=== PATIENT | female | born 1975 | race African-American/Black ===

== ENCOUNTER 2016-06-28 23:47 | Emergency (ER) | payer MEDICARE, MEDICAID ==
[2016-06-29 00:58] VITALS: BP 125/75
[2016-06-29] MEDS ORDERED: GUAIFENESIN/D-METHORPHAN (200-20 MG) SYRUP 10 ML PO ONE (01:47)
--- NOTE | 2016-06-29 01:50 | ER Document Report ---
ED ENT - General Chief Complaint: Sore Throat Stated Complaint: SORE THROAT Mode of Arrival: Ambulatory Information source: Patient, Friend Notes: Patient is a 41-year-old -[place] female who presents to the ER today for sore throat and cough 2 days. Patient states that the cough is a dry, hacking cough. She admits to chills and body aches. She is not tried anything for her symptoms. She denies nausea, vomiting or diarrhea, painful lymph nodes , headaches, fever. TRAVEL OUTSIDE OF THE [place] IN LAST 30 DAYS: No - Related Data Allergies/Adverse Reactions: No Known Allergies Allergy (Unverified 06/29/16 00:58) Past Medical History - General Information source: Patient, Friend - Social History Smoking Status: Never Smoker Family History: Reviewed & Not Pertinent Patient has suicidal ideation: No Patient has homicidal ideation: No Renal/ Medical History: Denies: Hx Peritoneal Dialysis Review of Systems - Review of Systems Constitutional: See HPI EENT: See HPI Cardiovascular: No symptoms reported Respiratory: See HPI Gastrointestinal: No symptoms reported Genitourinary: No symptoms reported Female Genitourinary: No symptoms reported Musculoskeletal: No symptoms reported Skin: No symptoms reported Hematologic/Lymphatic: No symptoms reported Neurological/Psychological: No symptoms reported Physical Exam - Vital signs Vitals: Temp Pulse Resp BP Pulse Ox 98 F 76 18 125/75 100 06/29/16 00:56 06/29/16 00:56 06/29/16 00:56 06/29/16 00:56 06/29/16 00:56 - Notes Notes: PHYSICAL EXAMINATION: GENERAL: Mildly ill-appearing, but in no acute distress. HEAD: Atraumatic, normocephalic. EYES: Pupils equal round and reactive to light, extraocular movements intact, sclera anicteric, conjunctiva are normal. ENT: ear canals without erythema or foreign body, TMs pearly flowers with good bony landmarks, nares with mucoid discharge, oropharynx clear without exudates. Moist mucous membranes. NECK: Normal range of motion, supple without lymphadenopathy LUNGS: Coughing constantly, otherwise CTAB and equal. No wheezes rales or rhonchi. HEART: Regular rate and rhythm without murmurs EXTREMITIES: Normal range of motion, no pitting edema. No cyanosis. NEUROLOGICAL: Cranial nerves grossly intact. Normal sensory/motor exams. PSYCH: Normal mood, normal affect. SKIN: Warm, Dry, normal turgor, no rashes or lesions noted Course - Re-evaluation Re-evalutation: 06/29/16 02:41 Strep was negative - Vital Signs Vital signs: Temp Pulse Resp BP Pulse Ox 98 F 76 18 125/75 100 06/29/16 00:56 06/29/16 00:56 06/29/16 00:56 06/29/16 00:56 06/29/16 00:56 Discharge - Discharge Clinical Impression: Cough, Sore throat Condition: Stable Disposition: HOME, SELF-CARE Instructions: Sore Throat ([facility]) Additional Instructions: Return immediately for any new or worsening symptoms. Follow up with primary care provider, call tomorrow to make followup appointment. Prescriptions: Hydrocodone Bit/Homatrop Me-Br [Hydrocodone-Homatropine Syrup] 5 ml PO Q4 PRN # 120 ml PRN Reason: Forms: Return to Work
== END 2016-06-29 03:00 | disposition home or self-care (01) ==
LOC: ER 23:47
DX: J02.9 Acute pharyngitis, unspecified (principal); R05 Cough; R68.83 Chills (without fever)
CPT/HCPCS: 99283; 87070; 87880; A9270; J3490

== ENCOUNTER 2016-09-06 18:06 | Emergency (ER) | payer MEDICARE, MEDICAID ==
[2016-09-06 18:13] VITALS: BP 126/80
--- NOTE | 2016-09-06 19:06 | ER Document Report ---
ED Medical Screen (RME) - General Chief Complaint: Abdominal Pain Stated Complaint: DIZZINESS,LEG PAIN Time Seen by Provider: 09/06/16 18:54 Mode of Arrival: Ambulatory Information source: Patient TRAVEL OUTSIDE OF THE [place] IN LAST 30 DAYS: No - HPI Onset: Yesterday Onset/Duration: Gradual Quality of pain: Cramping Associated Symptoms: Dizzy/lightheaded Exacerbated by: Denies Relieved by: Denies Notes: 09/06/16 19:05 Patient is a 41-year-old female who has been having irregular menses for some time. She is followed by her PHYSICIAN INDUSTRIAL doctor. Patient states she has had 2 menstrual cycles this month. Patient states she is used approximately 6 pads since yesterday. Patient feels dizzy. No syncope. No pelvic cramping. Patient is not currently on any female hormones. - Related Data Allergies/Adverse Reactions: No Known Allergies Allergy (Unverified 06/29/16 00:58) Past Medical History - General Information source: Patient, [facility] Records - Social History Frequency of alcohol use: None Drug Abuse: None Renal/ Medical History: Denies: Hx Peritoneal Dialysis Surgical Hx: Negative Review of Systems - Review of Systems Female Genitourinary: Vaginal bleeding -: Yes All other systems reviewed and negative Physical Exam - Vital signs Vitals: Temp Pulse Resp BP Pulse Ox 98 F 106 H 18 126/80 H 98 09/06/16 18:11 09/06/16 18:11 09/06/16 18:11 09/06/16 18:11 09/06/16 18:11 Interpretation: Normal - General General appearance: Appears well, Alert - HEENT Head: Normocephalic, Atraumatic Eyes: Normal Pupils: PERRL - Respiratory Respiratory status: No respiratory distress Chest status: Nontender Breath sounds: Normal Chest palpation: Normal - Cardiovascular Rhythm: Regular Heart sounds: Normal auscultation Murmur: No - Abdominal Inspection: Normal Distension: No distension Bowel sounds: Normal Tenderness: Nontender Organomegaly: No organomegaly - Back Back: Normal, Nontender - Extremities General upper extremity: Normal inspection, Nontender, Normal color, Normal ROM , Normal temperature General lower extremity: Normal inspection, Nontender, Normal color, Normal ROM , Normal temperature, Normal weight bearing. No: Sadie's sign - Neurological Neuro grossly intact: Yes Cognition: Normal Orientation: AAOx4 Pura Coma Scale Eye Opening: Spontaneous [place] Coma Scale Verbal: Oriented Pura Coma Scale Motor: Obeys Commands Pura Coma Scale Total: 15 Speech: Normal Motor strength normal: LUE, RUE, LLE, RLE Sensory: Normal - Psychological Associated symptoms: Normal affect, Normal mood - Skin Skin Temperature: Warm Skin Moisture: Dry Skin Color: Normal Course - Re-evaluation Re-evalutation: 09/06/16 20:01 Hemoglobin is normal. ED workup was otherwise unremarkable. Discussed need for PHYSICIAN INDUSTRIAL/primary care follow-up. Results have been reviewed with patient. - Vital Signs Vital signs: Temp Pulse Resp BP Pulse Ox 98 F 106 H 20 126/80 H 98 09/06/16 18:11 09/06/16 18:11 09/06/16 18:38 09/06/16 18:11 09/06/16 18:11 - Laboratory Result Diagrams: 09/06/16 19:15 09/06/16 19:15 Laboratory results interpreted by me: 09/06/16 09/06/16 19:15 19:15 Potassium 3.5 L Total Protein 8.4 H Urine Blood LARGE H Ur Leukocyte Esterase SMALL H Doctor's Discharge - Discharge Clinical Impression: Dysmenorrhea Condition: Good Disposition: HOME, SELF-CARE Instructions: Dysmenorrhea ([facility]) Additional Instructions: Follow-up with your PHYSICIAN INDUSTRIAL doctor tomorrow. Return to the emergency department if worse or for any other problems. Prescriptions: Tramadol HCl 50 mg PO QID PRN #20 tablet PRN Reason: Mild Pain
[2016-09-06 19:41] LABS: APPEARANCE,URINE SLIGHTLY-CLOUDY; BILIRUBIN,URINE NEGATIVE (NEGATIVE); GLUCOSE, URINE NEGATIVE (NEGATIVE); KETONES,URINE NEGATIVE (NEGATIVE); LEUKOCYTE ESTERASE,URINE SMALL (NEGATIVE); NITRITE,URINE NEGATIVE (NEGATIVE); PROTEIN,URINE NEGATIVE (NEGATIVE); URINE SPECIFIC GRAVITY 1.013; UROBILINOGEN,URINE NEGATIVE mg/dL (<2.0)
[2016-09-06 19:42] LABS: ABSOLUTE EOSINOPHILS # (AUTO) 0.2 10^3/uL (0.0-0.6); ABSOLUTE LYMPHOCYTES (AUTO) 1.9 10^3/uL (0.5-4.7); ABSOLUTE MONOCYTES (AUTO) 0.4 10^3/uL (0.1-1.4); ABSOLUTE NEUT (AUTO) 2.8 10^3/uL (1.7-8.2); BASOPHILS % (AUTO) 0.6 % (0-2); EOSINOPHILS % (AUTO) 4.5 % (0-6); HEMATOCRIT 40.6 % (36.0-47.0); HEMOGLOBIN 13.2 g/dL (12.0-15.5); LYMPHOCYTES % (AUTO) 34.9 % (13-45); MEAN CORPUSCULAR HEMOGLOBIN 29.6 pg (27.0-33.4); MEAN CORPUSCULAR HGB CONC 32.4 g/dL (32.0-36.0); MEAN CORPUSCULAR VOLUME 91 fl (80-97); MONOCYTES % (AUTO) 8.2 % (3-13); RED BLOOD COUNT 4.44 10^6/uL (3.72-5.28); RED CELL DISTRIBUTION WIDTH 13.3 % (11.5-14.0); SEGMENTED NEUTROPHILS % (AUTO) 51.8 % (42-78); WHITE BLOOD COUNT 5.4 10^3/uL (4.0-10.5)
[2016-09-06 19:54] LABS: ALANINE AMINOTRANSFERASE 25 U/L (9-52); ALBUMIN 4.5 g/dL (3.5-5.0); ALKALINE PHOSPHATASE 69 U/L (38-126); ANION GAP 11 (5-19); ASPARTATE AMINO TRANSFERASE 16 U/L (14-36); BILIRUBIN,DIRECT 0.3 mg/dL (0.0-0.4); BILIRUBIN,TOTAL 0.5 mg/dL (0.2-1.3); BLOOD UREA NITROGEN 12 mg/dL (7-20); CALCIUM 9.5 mg/dL (8.4-10.2); CARBON DIOXIDE 27 mmol/L (22-30); CHLORIDE 104 mmol/L (98-107); GLUCOSE 99 mg/dL (75-110); POTASSIUM 3.5 mmol/L (3.6-5.0); SODIUM 141.8 mmol/L (137-145); TOTAL PROTEIN 8.4 g/dL (6.3-8.2)
== END 2016-09-06 20:19 | disposition home or self-care (01) ==
LOC: ER 18:06
DX: N94.6 Dysmenorrhea, unspecified (principal); R10.9 Unspecified abdominal pain; R42 Dizziness and giddiness; M79.606 Pain in leg, unspecified
CPT/HCPCS: 36415; 80053; 81001; 85025; 99284

== ENCOUNTER 2019-01-14 13:08 | Emergency (ER) | payer MEDICARE, MEDICAID ==
[2019-01-14 13:12] VITALS: BP 110/73
--- NOTE | 2019-01-14 13:25 | ER Document Report ---
ED Medical Screen (RME) - General Chief Complaint: Vaginal Discharge Stated Complaint: VAGINAL DISCOMFORT Time Seen by Provider: 01/14/19 13:16 Primary Care Provider: NIGEL LUCERO MD [Primary Care Provider] - Follow up as needed Notes: Patient is a 43-year-old female who presents emergency department with a chief complaint of irregular vaginal bleeding. Patient states that for the past few months her bleeding has been irregular. She sometimes has to wear 2 pads at a time to help with her bleeding. Patient has seen her primary care provider, but has not seen COST ESTIMATING CLERK in regards to this issue. Patient also states that she has some discomfort in her lower abdomen. Denies any dysuria. Exam: Tender mid lower abdomen. I have greeted and performed a rapid initial assessment of this patient. A comprehensive ED assessment and evaluation of the patient, analysis of test results and completion of medical decision making process will be conducted by an additional ED providers. TRAVEL OUTSIDE OF THE [place] IN LAST 30 DAYS: No - Related Data Allergies/Adverse Reactions: No Known Allergies Allergy (Unverified 06/29/16 00:58) Past Medical History - Social History Frequency of alcohol use: None Drug Abuse: None Renal/ Medical History: Denies: Hx Peritoneal Dialysis Physical Exam - Vital signs Vitals: Temp Pulse BP Pulse Ox 98.0 F 65 110/73 99 01/14/19 13:12 01/14/19 13:12 01/14/19 13:12 01/14/19 13:12 Course - Vital Signs Vital signs: Temp Pulse Resp BP Pulse Ox 98.0 F 65 110/73 99 01/14/19 13:12 01/14/19 13:12 01/14/19 13:12 01/14/19 13:12 Doctor's Discharge - Discharge Referrals: NIGEL LUCERO MD [Primary Care Provider] - Follow up as needed
[2019-01-14] MEDS ORDERED: ONDANSETRON 4 MG TAB.RAPDIS PO ONE (13:26)
[2019-01-14 14:01] LABS: ABSOLUTE EOSINOPHILS # (AUTO) 0.3 10^3/uL (0.0-0.6); ABSOLUTE MONOCYTES (AUTO) 0.3 10^3/uL (0.1-1.4); ABSOLUTE NEUT (AUTO) 1.8 10^3/uL (1.7-8.2); BASOPHILS % (AUTO) 0.5 % (0-2); EOSINOPHILS % (AUTO) 6.2 % (0-6); HEMATOCRIT 36.5 % (36.0-47.0); HEMOGLOBIN 12.5 g/dL (12.0-15.5); LYMPHOCYTES % (AUTO) 45.5 % (13-45); MEAN CORPUSCULAR HEMOGLOBIN 31.3 pg (27.0-33.4); MEAN CORPUSCULAR HGB CONC 34.2 g/dL (32.0-36.0); MEAN CORPUSCULAR VOLUME 92 fl (80-97); PLATELET COUNT 250 10^3/uL (150-450); RED BLOOD COUNT 3.99 10^6/uL (3.72-5.28); RED CELL DISTRIBUTION WIDTH 12.7 % (11.5-14.0); SEGMENTED NEUTROPHILS % (AUTO) 40.8 % (42-78); TOTAL CELLS COUNTED % (AUTO) 100 %; WHITE BLOOD COUNT 4.5 10^3/uL (4.0-10.5)
[2019-01-14 14:25] LABS: APPEARANCE,URINE CLEAR; BILIRUBIN,URINE NEGATIVE (NEGATIVE); COLOR,URINE YELLOW; GLUCOSE, URINE NEGATIVE (NEGATIVE); KETONES,URINE NEGATIVE (NEGATIVE); PROTEIN,URINE 30 mg/dL (NEGATIVE); URIC ACID CRYSTALS,URINE TOO NUMEROUS TO CNT /HPF; URINE SPECIFIC GRAVITY 1.012; UROBILINOGEN,URINE NEGATIVE mg/dL (<2.0)
[2019-01-14 14:29] LABS: ALBUMIN 3.9 g/dL (3.5-5.0); ALKALINE PHOSPHATASE 53 U/L (38-126); ANION GAP 8 (5-19); ASPARTATE AMINO TRANSFERASE 16 U/L (14-36); BILIRUBIN,DIRECT 0.1 mg/dL (0.0-0.4); BILIRUBIN,TOTAL 0.4 mg/dL (0.2-1.3); BLOOD UREA NITROGEN 9 mg/dL (7-20); CALCIUM 9.3 mg/dL (8.4-10.2); CARBON DIOXIDE 25 mmol/L (22-30); CHLORIDE 108 mmol/L (98-107); GLUCOSE 84 mg/dL (75-110); TOTAL PROTEIN 7.3 g/dL (6.3-8.2)
[2019-01-14] MEDS ORDERED: IBUPROFEN 800 MG TABLET PO ONE (15:53)
[2019-01-14] MEDS ORDERED: CEPHALEXIN 500 MG CAPSULE PO ONE (15:53)
--- NOTE | 2019-01-14 15:54 | ER Document Report ---
ED GI/ - General Chief Complaint: Vaginal Discharge Stated Complaint: VAGINAL DISCOMFORT Time Seen by Provider: 01/14/19 13:16 Primary Care Provider: [facility] [Provider Group] - Follow up in 3-5 days NIGEL LUCERO MD [Primary Care Provider] - Follow up as needed Mode of Arrival: Ambulatory Information source: Patient Notes: Patient presents complaining of vaginal bleeding for the past 3 days. Patient reports last menstrual period was 2 months ago. Patient does complain of lower abdominal cramping. Patient reports nausea. Patient denies any urinary symptoms. TRAVEL OUTSIDE OF THE [place] IN LAST 30 DAYS: No - HPI Patient complains to provider of: Pelvic pain, Vaginal bleeding Onset: Other - 3 days Timing/Duration: Gradual Quality of pain: Cramping Pain Level: 3 Location: Pelvis Vaginal bleeding (Compared to normal period): Similar Associated symptoms: Nausea. denies: Dysuria, Fever, Loss of appetite, Urinary hesitancy, Urinary frequency, Urinary retention, Vomiting Exacerbated by: Denies Relieved by: Denies Similar symptoms previously: No Recently seen / treated by doctor: No - Related Data Allergies/Adverse Reactions: No Known Allergies Allergy (Unverified 06/29/16 00:58) Past Medical History - General Information source: Patient - Social History Smoking Status: Never Smoker Frequency of alcohol use: None Drug Abuse: None Occupation: Office Family History: Reviewed & Not Pertinent Patient has suicidal ideation: No Patient has homicidal ideation: No - Medical History Medical History: Negative Renal/ Medical History: Denies: Hx Peritoneal Dialysis Surgical Hx: Negative Review of Systems - Review of Systems Constitutional: No symptoms reported. denies: Fever, Recent illness EENT: No symptoms reported Cardiovascular: No symptoms reported. denies: Chest pain Respiratory: No symptoms reported Gastrointestinal: Abdominal pain, Nausea. denies: Vomiting Genitourinary: No symptoms reported Female Genitourinary: Vaginal bleeding. denies: Vaginal discharge Musculoskeletal: No symptoms reported Skin: No symptoms reported Hematologic/Lymphatic: No symptoms reported Neurological/Psychological: No symptoms reported Physical Exam - Vital signs Vitals: Temp Pulse BP Pulse Ox 98.0 F 65 110/73 99 01/14/19 13:12 01/14/19 13:12 01/14/19 13:12 01/14/19 13:12 - General General appearance: Appears well, Alert In distress: None - HEENT Head: Normocephalic, Atraumatic Eyes: Normal Conjunctiva: Normal Nasal: Normal Mouth/Lips: Normal Mucous membranes: Normal Neck: Normal, Supple. No: Lymphadenopathy - Respiratory Respiratory status: No respiratory distress Chest status: Nontender Breath sounds: Normal Chest palpation: Normal - Cardiovascular Rhythm: Regular Heart sounds: S1 appreciated, S2 appreciated Murmur: No - Abdominal Inspection: Normal Distension: No distension Bowel sounds: Normal Tenderness: Tender - suprapubic Organomegaly: No organomegaly - Back Back: Normal, Nontender. No: CVA tenderness - Extremities General upper extremity: Normal inspection, Normal strength General lower extremity: Normal inspection, Normal strength - Neurological Neuro grossly intact: Yes Cognition: Normal Pura Coma Scale Eye Opening: Spontaneous Pura Coma Scale Verbal: Oriented Pura Coma Scale Motor: Obeys Commands Pura Coma Scale Total: 15 - Psychological Associated symptoms: Normal affect, Normal mood - Skin Skin Temperature: Warm Skin Moisture: Dry Skin Color: Normal Course - Re-evaluation Re-evalutation: 01/14/19 16:14 Offered patient testing for STDs, patient declines any concern about STI. Patient defers any pelvic examination at this time. Ultrasound does show heterogenous uterine findings that could be due to possible uterine fibroids. Discussed this finding with patient. Patient advised that she should follow-up with OPERATIONS TECH doctor for further evaluation and to rule out any other pathology that may be causing irregular vaginal bleeding. Patient with stable H&H and vital signs. Will culture urine at this time and treat for UTI. - Vital Signs Vital signs: Temp Pulse Resp BP Pulse Ox 98.0 F 65 110/73 99 01/14/19 13:12 01/14/19 13:12 01/14/19 13:12 01/14/19 13:12 - Laboratory Result Diagrams: 01/14/19 13:41 01/14/19 13:41 Laboratory results interpreted by me: 01/14/19 01/14/19 01/14/19 13:23 13:41 13:41 Lymph % (Auto) 45.5 H Eos % (Auto) 6.2 H Seg Neutrophils % 40.8 L Chloride 108 H Urine Protein 30 H Urine Blood LARGE H 01/14/19 16:15 Labs- Entire Visit 01/14/19 01/14/19 01/14/19 13:23 13:23 13:41 WBC 4.5 RBC 3.99 Hgb 12.5 Hct 36.5 MCV 92 MCH 31.3 MCHC 34.2 RDW 12.7 Plt Count 250 Lymph % (Auto) 45.5 H [place] % (Auto) 7.0 Eos % (Auto) 6.2 H Baso % (Auto) 0.5 Absolute Neuts (auto) 1.8 Absolute Lymphs (auto) 2.0 Absolute Monos (auto) 0.3 Absolute Eos (auto) 0.3 Absolute Basos (auto) 0.0 Seg Neutrophils % 40.8 L Sodium Potassium Chloride Carbon Dioxide Anion Gap BUN Creatinine Est GFR ( Amer) Est GFR (MDRD) Non-Af Glucose Calcium Total Bilirubin Direct Bilirubin Neonat Total Bilirubin Neonat Direct Bilirubin Neonat Indirect Bili AST ALT Alkaline Phosphatase Total Protein Albumin Serum HCG, Qual NEGATIVE Urine Color YELLOW Urine Appearance CLEAR Urine pH 7.0 Ur Specific [place] 1.012 Urine Protein 30 H Urine Glucose (UA) NEGATIVE Urine Ketones NEGATIVE Urine Blood LARGE H Urine Nitrite (Reflex) NEGATIVE Urine Bilirubin NEGATIVE Urine Urobilinogen NEGATIVE Leukocyte Esterase Rfl NEGATIVE Urine RBC (Auto) >182 Urine WBC (Reflex) 100 Squamous Epi Cells Auto 11 Uric Acid Cryst (Auto) TOO NUMEROUS TO CNT Urine Mucus (Auto) FEW Urine Ascorbic Acid NEGATIVE 01/14/19 13:41 WBC RBC Hgb Hct MCV MCH MCHC RDW Plt Count Lymph % (Auto) [place] % (Auto) Eos % (Auto) Baso % (Auto) Absolute Neuts (auto) Absolute Lymphs (auto) Absolute Monos (auto) Absolute Eos (auto) Absolute Basos (auto) Seg Neutrophils % Sodium 141.3 Potassium 4.0 Chloride 108 H Carbon Dioxide 25 Anion Gap 8 BUN 9 Creatinine 0.70 Est GFR ( Amer) > 60 Est GFR (MDRD) Non-Af > 60 Glucose 84 Calcium 9.3 Total Bilirubin 0.4 Direct Bilirubin 0.1 Neonat Total Bilirubin Not Reportable Neonat Direct Bilirubin Not Reportable Neonat Indirect Bili Not Reportable AST 16 ALT 8 Alkaline Phosphatase 53 Total Protein 7.3 Albumin 3.9 Serum HCG, Qual Urine Color Urine Appearance Urine pH Ur Specific [place] Urine Protein Urine Glucose (UA) Urine Ketones Urine Blood Urine Nitrite (Reflex) Urine Bilirubin Urine Urobilinogen Leukocyte Esterase Rfl Urine RBC (Auto) Urine WBC (Reflex) Squamous Epi Cells Auto Uric Acid Cryst (Auto) Urine Mucus (Auto) Urine Ascorbic Acid - Diagnostic Test Radiology reviewed: Reports reviewed Discharge - Discharge Clinical Impression: Vaginal bleeding UTI (urinary tract infection) Qualifiers: Urinary tract infection type: site unspecified Hematuria presence: with hematuria Qualified Code(s): N39.0 - Urinary tract infection, site not specified Condition: Stable Disposition: HOME, SELF-CARE Instructions: Cephalexin ([facility]), Urinary Tract Infection ([facility]), Vaginal Bleeding ([facility]) Additional Instructions: Return immediately for any new or worsening symptoms Followup with your SPREADER care provider, call tomorrow to make a followup appointment Your ultrasound shows findings that could be dated to uterine fibroids. You should follow-up with a automotive maintenance technician for further evaluation of abnormal bleeding. They may need to do a biopsy to rule out cancer as a possible cause of causing irregular vaginal bleeding. Prescriptions: Cephalexin Monohydrate [Keflex 500 mg Capsule] 500 mg PO BID 5 Days capsule Naproxen [Naprosyn 250 Nmg Tablet] 1 tab PO BID #14 tablet Forms: Return to Work Referrals: NIGEL LUCERO MD [Primary Care Provider] - Follow up as needed [facility] [Provider Group] - Follow up in 3-5 days
--- NOTE | 2019-01-14 16:10 | RADIOLOGY REPORT (SQ) ---
EXAM DESCRIPTION: U/S NON OB PEL TV W/DOPPLER COMPLETED DATE/TIME: 01/14/2019 3:48 pm REASON FOR STUDY: vaginal bleeding LMP 01/12/2019 COMPARISON: None. TECHNIQUE: Dynamic and static grayscale images acquired of the pelvis via transvaginal approach and recorded on PACS. Additional selected color Doppler and spectral images recorded. LIMITATIONS: None. FINDINGS: UTERUS: Myometrium is slightly heterogeneous. ENDOMETRIAL STRIPE: Ill-defined. CERVIX: 2.6 cm. Nabothian cysts are present. RIGHT OVARY AND DOPPLER: Normal size. No worrisome masses. Normal arterial vascular flow without evid ence for torsion. 2.4 cm cyst LEFT OVARY AND DOPPLER: Normal size. No worrisome masses. Normal arterial vascular flow without evide nce for torsion. 1.6 cm cyst FREE FLUID: None noted. OTHER: No other significant finding. MEASUREMENTS: UTERUS: 9 x 5.2 x 6 cm. ENDOMETRIAL STRIPE: 10 mm. RIGHT OVARY: 3.2 x 2.8 x 2.4 cm. LEFT OVARY: 3.4 x 1.6 x 2.6 cm. IMPRESSION: The myometrium is slightly heterogeneous. May suggest uterine fibroids. No acute findi ng is seen. Small ovarian cysts are almost certainly benign. No additional imaging is required for these. TECHNICAL DOCUMENTATION: JOB ID: [id number]- All Rights Reserved Reading location - IP/workstation name: [email or web address]
== END 2019-01-14 16:41 | disposition home or self-care (01) ==
LOC: ER 13:08
DX: N39.0 Urinary tract infection, site not specified (principal); N89.8 Other specified noninflammatory disorders of vagina; R10.2 Pelvic and perineal pain; N93.8 Other specified abnormal uterine and vaginal bleeding; R11.0 Nausea
CPT/HCPCS: 36415; 84703; 85025; 80053; 81001; 76830; 93976; A9270 ×3; 87086; 99284; S0119